=== PATIENT | male | born 1985 | race Two or more races ===

== ENCOUNTER 2017-12-22 15:16 | Emergency (ER) | payer OTHER ==
[~2017-12-22] VITALS: Ht 170.2 cm; Wt 90.7 kg
[2017-12-22] MEDS ORDERED: LORAZEPAM 1 MG TABLET PO STA (15:30)
--- NOTE | 2017-12-22 15:30 | NUR ---
NATALY CASTREJON IS AT THE BEDSIDE.
[2017-12-22] MEDS ORDERED: LORAZEPAM 1 MG TABLET ONE (15:34)
--- NOTE | 2017-12-22 15:44 | NUR ---
PT AMBULATED TO THE BATHROOM WITH A STEADY GAIT.
--- NOTE | 2017-12-22 16:33 | NUR ---
Patient discharged to home in stable condition. Written and verbal after care instructions given. Patient verbalizes understanding of instruction AND RX. PT AMBULATED TO THE LOBBY TO WAIT FOR [employer] TO PICK HIM UP. PT WAS INSTRUCTED NOT TO DRIVE FOR THE NEXT 24 HRS. PT AMBULATED OUT WITH A STEADY GAIT. VSS.
[2017-12-22 16:35] VITALS: BP 121/78
== END 2017-12-22 16:35 | disposition home or self-care (01) ==
LOC: ER 15:18
DX: F41.9 Anxiety disorder, unspecified (principal)
CPT/HCPCS: A4606; Z7610

== ENCOUNTER → 2017-12-26 | Emergency (ER) | payer OTHER ==
[~2017-12-26] VITALS: Ht 182.9 cm; Wt 95.3 kg
[~2017-12-26] MED LIST: LORAZEPAM 1 MG TABLET ONE; LORAZEPAM 1 MG TABLET PO ONE
--- NOTE | 2017-12-26 20:57 | NUR ---
BIB C/O "FEELING BODY IS TWISTING AND MIGHT SWOLLOW HIS TOUNGE" NOTED TO BE ANXIOUS. NO SOB. NO PAIN. VSS. WILL CONTINUE TO MONITOR FOR ANY CHANGES DURING THE SHIFT.
--- NOTE | 2017-12-26 22:35 | NUR ---
Patient discharged to home in stable condition. Written and verbal after care instructions given. Patient verbalizes understanding of instruction. ambulatory with a steady gait. instructed pt not to drive. pt verbalize understanding.
[2017-12-26 22:36] VITALS: BP 138/98
== END | disposition home or self-care (01) ==
LOC: ER 20:59
DX: F41.9 Anxiety disorder, unspecified (principal); G47.00 Insomnia, unspecified; F17.200 Nicotine dependence, unspecified, uncomplicated; Z71.6 Tobacco abuse counseling
CPT/HCPCS: 99284; 99406; A4606; J7060; Z7610